=== PATIENT | female | born 1945 | race Caucasian/White ===

== ENCOUNTER 2025-07-09 08:20 | Outpatient (CLI) | payer MEDICARE | END 2025-07-09 08:21 | disposition home or self-care (01) | LOC: SCSBT 08:20 | PROVIDERS: ATTEND Family Medicine | DX: Z78.0 Asymptomatic menopausal state (principal); M85.851 Other specified disorders of bone density and structure, right thigh; M85.852 Other specified disorders of bone density and structure, left thigh | CPT/HCPCS: 77080 ==